=== PATIENT | female | born 1955 | race Caucasian/White ===

== ENCOUNTER 2019-03-20 06:15 | Day surgery (SDC) | payer OTHER ==
[2019-03-19 10:29] VITALS: BMI 36.3
[2019-03-20] MEDS ORDERED: BUPIVACAINE HCL/PF 0.5% (5 MG/ML) 30 ML VIAL IJ ONE (07:37)
[2019-03-20] MEDS ORDERED: LIDOCAINE HCL 1%, 10 MG/ML (20ML VIAL) ONE (07:37)
[2019-03-20] MEDS ORDERED: DEXAMETHASONE SOD PHOSPHATE 4 MG/1 ML VIAL ONE (07:37)
[2019-03-20] MEDS ORDERED: LIDOCAINE HCL/PF 2% SDV 5ML VIAL ONE (07:49)
[2019-03-20] MEDS ORDERED: MIDAZOLAM HCL 2 MG/2 ML SINGLE DOSE VIAL ONE ×2 (07:50)
[2019-03-20] MEDS ORDERED: PROPOFOL 20 ML ONE ×2 (07:50)
[2019-03-20] MEDS ORDERED: ceFAZolin SODIUM 1 GM VIAL ONE (07:54)
[2019-03-20] MEDS ORDERED: ceFAZolin SODIUM 1 GM VIAL IVPB ONE (07:57)
[2019-03-20] MEDS ORDERED: LIDOCAINE HCL 1%, 10 MG/ML (20ML VIAL) NR ONE (07:59)
[2019-03-20] MEDS ORDERED: BUPIVACAINE HCL/PF 0.5% (5MG/ML) 10 ML VIAL IJ ONE (07:59)
[2019-03-20] MEDS ORDERED: BACITRACIN 50,000 UNITS VIAL TP ONE (08:09)
[2019-03-20] MEDS ORDERED: KETOROLAC TROMETHAMINE 30 MG/1 ML VIAL ONE (08:15)
--- NOTE | 2019-03-20 08:40 | OP ---
Operative Note - Note: Operative Date: 03/20/19 Pre-Operative Diagnosis: Painful bone neoplasm left big toe Operation: Avulsion of nail left big toe. Excision of bone tumor-spur left distal phalanx left big toe Findings: Hypertrophic bone and soft tissue. Post-Operative Diagnosis: Same as Pre-op Surgeon: Juan Kothari Ball Machine Operator: Ernesto Omalley Anesthesia: Local, MAC Specimens Removed: Bone ,skin,and nail Estimated Blood Loss (mls): 5 Operative Report Dictated: Yes
[2019-03-20] MEDS ORDERED: ACETAMINOPHEN 325 MG TABLET (FP) ONE (08:43)
[2019-03-20] MEDS ORDERED: oxyCODONE HCL 5 MG TABLET ONE (08:43)
[2019-03-20] MEDS ORDERED: oxyCODONE HCL 5 MG TABLET PO ONE (08:44)
[2019-03-20] MEDS ORDERED: ACETAMINOPHEN 325 MG TABLET (FP) PO ONE (08:44)
[2019-03-20 08:50] VITALS: TEMP 97.6
[2019-03-20 10:56] VITALS: BP 128/60; PULSE 88
--- NOTE | 2019-03-24 11:43 | PATH ---
Surgical Pathology Report Patient Name: IZA RUTLEDGE [facility]. Rec. #: [id number] /Age/Gender: 1955 (Age: 63) / F Account: [id number] Location: 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 LEFT TOENAIL, EXCISION: PORTION OF DYSTROPHIC NAIL. PAS STAIN FOR FUNGI IS POSITIVE FOR ONYCHOMYCOSIS. B. BONE TUMOR, LEFT FOOT, EXCISION: PORTION OF BONE WITH REACTIVE CHANGE. ADJACENT FIBROCONNECTIVE TISSUE WITH FOCAL FIBROSIS. Electronically Signed Patricia Santos M.D. Gross Description A. Received in formalin, labeled "left toenail" and a portion of toenail measuring 1.5 x 1.5 x 0.1 cm. The specimen is serially sectioned and entirely submitted one cassette. B. Received in formalin, labeled "bone tumor left foot" is a vidal, irregular portions of soft tissue with possible bone element measuring 0.4 cm. in greatest dimension. The specimen is submitted in toto in one cassette after briefly decalcification. __ KWS/03/20/2019 clarice/03/20/2019
--- NOTE | 2019-03-31 15:54 | OP ---
DATE OF OPERATION: 03/20/2019 PREOPERATIVE DIAGNOSIS: Exostosis distal phalanx, left hallux. POSTOPERATIVE DIAGNOSIS: Exostosis distal phalanx, left hallux. PROCEDURE: Exostectomy of distal phalanx of left hallux. ANESTHESIA: IV MAC with local. ESTIMATED BLOOD LOSS: 2 mL. HEMOSTASIS: Pneumatic left ankle tourniquet 250 mmHg. DESCRIPTION OF PROCEDURE: The patient was brought to the operating room and placed in a supine position on the operating room table after adequate IV sedation was administered. At this time, a local infiltrate block consisting of 1 and 1 mixture of 2% lidocaine plain and 0.5% Marcaine plain was administered to the left hallux digital block with a total of 6 mL administered. Left hallux hallucal nail was removed using a [place] and hemostat and passed from the field. The left foot was then prepped, scrubbed, and draped in the usual aseptic technique following exsanguination of the left foot with Esmarch bandage and placed in the paddle at the ankle. Pneumatic ankle tourniquet was inflated to 250 mmHg. Surgery began in the following manner. Attention was then directed to the dorsal aspect of the left hallux. At this time using a 15 blade, a longitudinal incision measuring approximately 3 cm in length was made directly over the prominence. The incision was deepened through the subcutaneous tissue using sharp and blunt dissection with care taken to identify and retract all vital neural and vascular structures. After the bone had been sufficiently exposed, the prominence was excised from the operative site using a sagittal saw. All rough edges were then smoothed down using a bone rasp. Correction of the deformity was assessed at this time and noted to be in good condition. Surgical site was then copiously irrigated with bacitracin normal saline mix. Skin edges were then reapproximated using 4-0 nylon. Compression dressing was then applied using a Telfa pad, Betadine-soaked Adaptic, 4 x 4's, sterile Janey, and an Mich wrap. Pneumatic ankle tourniquet was then deflated, and prompt hyperemic response was then noted. KYRIE [id number]
== END 2019-03-20 10:25 | disposition home or self-care (01) ==
LOC: JASU-SURG 06:15
PROVIDERS: ATTEND Podiatrist
PROC: 0HDRXZZ Extraction of Toe Nail, External Approach (ICD-10-PCS; 2019-03-20)
PROC: 0QBR0ZZ Excision of Left Toe Phalanx, Open Approach (ICD-10-PCS; principal; 2019-03-20 07:30)
DX: D16.32 Benign neoplasm of short bones of left lower limb (principal); B35.1 Tinea unguium
CPT/HCPCS: 73630-TC-LT; 88304-TC; 88305-TC; 88311-TC; 88312-TC